=== PATIENT | male | born 1945 | race Caucasian/White ===

== ENCOUNTER 2020-05-20 10:41 | Inpatient (IN) | payer OTHER ==
[~2020-05-20] VITALS: Ht 180.3 cm; Wt 125.2 kg
[2020-05-20 10:43] VITALS: BP 135/89
[2020-05-20 11:58] LABS: ABSOLUTE NEUTROPHILS 4.5 thou/uL (1.4-8.2); BASOPHILS 1.1 % (0.0-2.0); EOSINOPHILS 5.5 % (0.0-3.0); HEMATOCRIT 42.3 % (42.0-52.0); LYMPHOCYTES 14.3 % (24.0-44.0); MCH 33.1 pg (26.0-34.0); MCV 100.4 fL (80.0-100.0); MONOCYTES 9.4 % (1.0-8.0); PLATELET COUNT 211 thou/uL (150-400); POLYS 69.7 % (36.0-66.0); RBC 4.22 mil/uL (4.50-6.00); RDW 13.8 % (10.5-14.5); WBC 6.4 thou/uL (4.0-11.0)
[2020-05-20 12:04] LABS: ANION GAP 4 mmol/L (7-16); BUN 18 mg/dL (7-18); CALCIUM 9.3 mg/dL (8.5-10.1); CHLORIDE 100 mmol/L (98-107); CO2 30 mmol/L (21-32); CREATININE 1.2 mg/dL (0.7-1.3); GLUCOSE 120 mg/dL (74-106); POTASSIUM 4.7 mmol/L (3.5-5.1); SODIUM 134 mmol/L (136-145)
[2020-05-20 12:09] LABS: ALBUMIN 3.6 g/dL (3.4-5.0); SGOT 56 U/L (15-37); SGPT 96 U/L (30-65); TOTAL BILIRUBIN 1.1 mg/dL (0.2-1.0); TOTAL PROTEIN 7.2 g/dL (6.4-8.2); TROPONIN-I <0.06 ng/mL (<0.06)
--- NOTE | 2020-05-20 13:12 | EKG ---
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: : 1945 Requested By: Remedios Nunez Order Number: [id number] MD: Otilio Horne Measurements Intervals [place] Rate: 71 P: 259 TX: 243 QRS: -40 QRSD: 109 T: 4 QT: 416 QTc: 453 Interpretive Statements Atrial fibrillation Left anterior fascicular block Abnormal R-wave progression, late transition Borderline T abnormalities, inferior leads No previous ECG available for comparison Electronically Signed On 05-20-2020 13:12:06 SOFTWARE SOLUTIONS ARCHITECT by Otilio Horne [email or web address] <ELECTRONICALLY SIGNED> By: Otilio Horne MD 05/20/20 1312 1047 1047 Otilio Horne MD /RODERICK
[2020-05-20 20:00] VITALS: BP 123/85
[2020-05-21 01:30] VITALS: BP 142/73
[2020-05-21] MEDS ORDERED: CYCLOBENZAPRINE5 MG PO (06:49)
[2020-05-21] MEDS ORDERED: METOPROLOL SUC100 MG PO (06:49)
[2020-05-21] MEDS ORDERED: CLONIDINE HCL0.3 M2 PO (06:49)
[2020-05-21] MEDS ORDERED: ASA81BEC PO (06:50)
[2020-05-21] MEDS ORDERED: XARELTO20 MG PO (06:50)
[2020-05-21] MEDS ORDERED: LOVASTATIN40 MG PO (06:50)
[2020-05-21] MEDS ORDERED: ALEVE220 M1 PO (06:50)
[2020-05-21] MEDS ORDERED: STOOL SOFTENER1 EAC2 PO (06:51)
[2020-05-21 08:38] VITALS: BP 141/81
[2020-05-21 09:30] VITALS: BP 154/80
[2020-05-21 10:12] VITALS: BP 154/80
[2020-05-21 11:45] LABS: APTT 27.8 Seconds (24.5-32.8); PROTIME 11.5 Seconds (9.3-11.4)
--- NOTE | 2020-05-21 14:09 | NUR ---
PT PRESENTS FROM BEEF [facility]ONER FOLLOWING PACEMAKER PLACEMENT. PT IS SLEEPING AND DENIES PAIN AT THIS TIME. ADMISSION ASSESSMENT PERFORMED. VSS. WILL CONTINUE TO MONITOR.
[2020-05-21 20:00] VITALS: BP 122/79
[2020-05-21 20:04] VITALS: BP 122/79
[2020-05-22] VITALS: BP 174/103
[2020-05-22 04:57] VITALS: BP 154/105
[2020-05-22] MEDS ORDERED: BENICAR40 MG PO (07:30)
[2020-05-22] MEDS ORDERED: CARDIZEM CD 18180 M3 PO (07:30)
[2020-05-22 08:15] VITALS: BP 151/87
[2020-05-22 11:17] VITALS: BP 157/87
--- NOTE | 2020-05-22 11:49 | NUR ---
PT WAS SEEN TODAY BY CARDIOLOGY GROUP OK'D TO DISCHARGE, PT'S WAS AT BEDSIDE THOUGH SHE HAD LEFT TO GRAB THE CHECKBOOK FROM HOME, THE DISCHARGE INSTRUCTIONS WERE PROVIDED TO THE PT, AND PT VERBALIZED UNDERSTANDING. ALL IV'S REMOVED. PT IS READY TO LEAVE AT THIS TIME. NO COMPLAINTS OF CHEST PAIN AT THIS AND CLEARE BY CARDIOLOGY TO GO. RN SIGNING OFF AT THIS TIME
[2020-06-03] MEDS ORDERED: XARELTO20 MG PO (07:41)
--- NOTE | 2020-06-03 16:13 | P ---
[facility] [place] [address] PROCEDURE REPORT Name: BECK THIBODEAUX Room #: 213-P [facility] IN M.R.#: [id number] Admission: 05/20/20 Attend Phys: Saurav Sherwood MD, Discharge: 05/22/20 Date of : 46 Report #: [id number] THIS REPORT FOR: cc: Aroldo Arreola MD, Michael D. MD Couchonnal, Luis F. MD ~ PACEMAKER PREOPERATIVE DIAGNOSES: 1. Symptomatic bradycardia. 2. Atrial fibrillation. POSTOPERATIVE DIAGNOSES: 1. Symptomatic bradycardia. 2. Atrial fibrillation. PROCEDURES PERFORMED: Dual-chamber pacemaker implantation. HISTORY: The patient is a 74-year-old recently diagnosed with new onset AFib, who has periods of AFib with RVR, but also of symptomatic bradycardia with 4-5 second pauses. 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 ANESTHESIA: The patient underwent MAC anesthesia with no anesthesia related complications. DESCRIPTION OF PROCEDURE: The patient underwent informed consent. We discussed the details of the procedure including the risks, which include but not limited to bleeding, infection, vascular damage, cardiac perforation, pneumothorax. He understood these risks and is willing to proceed. The patient was brought to EP laboratory in a fasting and sedated state, prepped and draped in a sterile fashion, underwent venogram and received IV antibiotics. Next, I injected lidocaine at the incision site. Incision was made, pocket was created over the prepectoral fascia and access was obtained twice to left axillary vein using the extrathoracic approach with sheaths positioned using the modified Seldinger technique. Leads were positioned in the right ventricular apex, right atrial appendage, both with adequate pacing and sensing thresholds. Leads were sutured to prepectoral fascia. Device was connected to leads. Pocket was irrigated with vancomycin. Pocket was closed in 2 layers and surgical glue was placed to outer skin layer. The patient awoke neurologically and hemodynamically intact. No complications and no significant bleeding. The implanted pacemaker was a Medtronic model number #W3DR01, serial #[id number], an atrial lead was 5076, 52 cm, serial #[id number] and the ventricular lead was 5076, 58 cm, serial #[id number]. Atrial lead demonstrated two P waves that were 2.0 in atrial fibrillation with a pacing impedance of 621 ohms. Threshold was [facility] [address] [place] [address] PROCEDURE REPORT Name: BECK THIBODEAUX Room #: 213-P DIS IN M.R.#: [id number] Admission: 05/20/20 Attend Phys: Saurav Sherwood MD, Discharge: 05/22/20 Date of : 46 Report #: [id number] not checked as he is in AFib. The RV lead demonstrated a R-wave of 5.3 millivolts, pacing impedance 690 ohms and a pacing threshold of 0.8 volts at 0.5 milliseconds. The device was programmed to the VVIR mode 60-130. CONCLUSIONS: Successful dual-chamber pacemaker implantation, satisfactory atrial and ventricular pacing and sensing characteristics. RECOMMENDATIONS: 1. Monitor in the hospital overnight. 2. As an outpatient, we will cardiovert the patient after he has been properly anticoagulated. <ELECTRONICALLY SIGNED> By: Otilio Horne MD 06/03/20 1613 1251 03 Otilio Horne MD /nt
== END 2020-05-22 12:11 | disposition home or self-care (01) | DRG 243 ==
LOC: ER 10:41 → TBACV 12:57 → ER 13:30 → EROBS 13:30 → ER 05-21 11:37 → TBACV 05-21 11:37 → 2N 05-21 13:53
PROVIDERS: Internal Medicine; Internal Medicine Cardiovascular Disease; ADMIT Internal Medicine Cardiovascular Disease; ATTEND Internal Medicine Cardiovascular Disease
PROC: 0JH606Z Insertion of Pacemaker, Dual Chamber into Chest Subcutaneous Tissue and Fascia, Open Approach (ICD-10-PCS; principal; 2020-05-21)
PROC: 02H63JZ Insertion of Pacemaker Lead into Right Atrium, Percutaneous Approach (ICD-10-PCS; principal; 2020-05-21)
PROC: 02HK3JZ Insertion of Pacemaker Lead into Right Ventricle, Percutaneous Approach (ICD-10-PCS; principal; 2020-05-21)
DX: I49.5 Sick sinus syndrome (principal); I48.20 Chronic atrial fibrillation, unspecified; I48.0 Paroxysmal atrial fibrillation; I10 Essential (primary) hypertension; E78.5 Hyperlipidemia, unspecified; Z20.822 Contact with and (suspected) exposure to COVID-19; Z79.899 Other long term (current) drug therapy; Z79.01 Long term (current) use of anticoagulants; Z79.82 Long term (current) use of aspirin; Z82.49 Family history of ischemic heart disease and other diseases of the circulatory system; Z86.16 Personal history of COVID-19
CPT/HCPCS: 10081; 62110; 62900; 70005

== ENCOUNTER → 2020-05-29 | Outpatient (CLI) | payer OTHER ==
[~2020-05-29] MED LIST: ALEVE220 M1 PO; ASA81BEC PO; BENICAR40 MG PO; CARDIZEM CD 18180 M3 PO; CLONIDINE HCL0.3 M2 PO; CYCLOBENZAPRINE5 MG PO; LOVASTATIN40 MG PO; METOPROLOL SUC100 MG PO; STOOL SOFTENER1 EAC2 PO; XARELTO20 MG PO
== END ==
LOC: SJCVC 15:14
PROVIDERS: ATTEND Internal Medicine Cardiovascular Disease
DX: I48.19 Other persistent atrial fibrillation (principal); I42.9 Cardiomyopathy, unspecified; I49.5 Sick sinus syndrome; I10 Essential (primary) hypertension; I48.0 Paroxysmal atrial fibrillation; E78.5 Hyperlipidemia, unspecified; Z95.0 Presence of cardiac pacemaker; Z72.89 Other problems related to lifestyle; Z79.82 Long term (current) use of aspirin; Z79.899 Other long term (current) drug therapy; Z87.891 Personal history of nicotine dependence; Z86.16 Personal history of COVID-19; Z82.49 Family history of ischemic heart disease and other diseases of the circulatory system

== ENCOUNTER → 2020-05-30 | Outpatient (CLI) | payer OTHER | LOC: LAB 09:42 | PROVIDERS: ATTEND Internal Medicine Cardiovascular Disease | DX: Z01.812 Encounter for preprocedural laboratory examination (principal); Z20.822 Contact with and (suspected) exposure to COVID-19 ==

== ENCOUNTER → 2020-06-03 | Outpatient (CLI) | payer OTHER ==
[~2020-06-03] VITALS: Ht 180.3 cm; Wt 120.2 kg
--- NOTE | ~2020-06-03 | EKG ---
[place] [address] [facility] [place] [address] ELECTROCARDIOGRAM REPORT Name: BECK THIBODEAUX Room #: REG [facility]#: [id number] Admission: 06/03/20 Attend Phys: José Luis Velázquez MD, Discharge: Date of : 46 Report #: [id number] [facility] Test Date: 2020-06-03 Test Time: 07:40:02 Pat Name: BECK THIBODEUAX Department: Room: Gender: M Manager Of Enterprise: SYLVIACLINTON : 1945 Requested By: José Luis Velázquez Order Number: [id number] MD: Measurements Intervals [place] Rate: 71 P: 266 TN: 136 QRS: -37 QRSD: 110 T: 12 QT: 366 QTc: 398 Interpretive Statements Sinus or ectopic atrial rhythm Atrial premature complexes Left axis deviation Abnormal R-wave progression, late transition Compared to ECG 05/20/2020 10:47:39 Ectopic atrial rhythm now present Atrial premature complex(es) now present Left-axis deviation now present Atrial fibrillation no longer present Left anterior fascicular block no longer present T-wave abnormality no longer present [email or web address] By: 0740 07 [facility] [place] /EPI
[2020-06-03 07:21] VITALS: BP 91/41
--- NOTE | 2020-06-03 12:02 | TEE ---
[facility] [place] [address] TRANSESOPHAGEAL ECHOCARDIOGRAM Name: BECK THIBODEAUX Room #: REG SHARON David.#: [id number] Admission: 06/03/20 Attend Phys: José Luis Velázquez MD, Discharge: Date of : 46 Report #: [id number] THIS REPORT FOR: cc: Aroldo Arreola MD, Michael D. MD Santiago, Patrick MD [facility] ~ APPROVED REPORT Study performed: 06/03/2020 09:02:45 EXAM: Comprehensive 2D, Doppler, and color-flow Echocardiogram Patient Location: Out-Patient Room #: 9 Status: routine BSA: 2.38 HR: 85 bpm Other Information Study Quality: Good Indications Atrial Fibrillation Echo Enhancing Agent Indication: Rule out Shunt Agent(s) / Amount(s) Used: Agitated Saline 7 cc Procedure After obtaining informed consent, patient underwent transesophageal echo in the Maintenance Instructor Holding. Type of Sedation : Conscious Sedation Sedation was administered by Nurse. Sedation was achieved intravenously with: Versed (6 mg) Fentanyl (50 mcg) Transesophageal probe was inserted and advanced into esophagus without difficulty by José Luis Velázquez MD. Echo enhancement indication: R/O Septal defect. Echo enhancement agent administered: Agitated Saline The CYNDEE was performed without complications. Synchronized Cardioversion acheived with 75 Joules after 1 attempt(s). Throughout the procedure, the blood pressure, pulse oximetry, cardiac [facility] [address] [place] [address] TRANSESOPHAGEAL ECHOCARDIOGRAM Name: BECK THIBODEAUX Room #: REG CL [facility].#: [id number] Admission: 06/03/20 Attend Phys: José Luis Velázquez, Discharge: Date of : 46 Report #: [id number] rhythm, and rate were monitored. The patient tolerated the procedure without adverse effects. Recovery from conscious sedation was uneventful and vital signs were stable. Left Ventricle The left ventricle is normal size. There is normal LV segmental wall motion. There is normal left ventricular wall thickness. The left ventricular systolic function is normal. The left ventricular ejection fraction is within the normal range. LVEF is 50% Right Ventricle The right ventricle is normal size. The right ventricular systolic function is normal. Atria Left atrium is dilated. The right atrium size is normal. Aortic Valve The aortic valve is normal in structure. No aortic regurgitation is present. There is no aortic valvular stenosis. Mitral Valve The mitral valve is normal in structure. Trace mitral regurgitation. No evidence of mitral valve stenosis. Tricuspid Valve The tricuspid valve is normal in structure. There is no tricuspid valve regurgitation noted. Pulmonic Valve The pulmonary valve is normal in structure. There is no pulmonic valvular regurgitation. Great Vessels The aortic root is normal in size. Pericardium There is no pericardial effusion. <Conclusion> Consent previously obtained Atrial fibrillation at baseline Esophageal probe was advanced without difficulty Normal left ventricular size/wall thickness Left atrial appendage, moderate size, no obvious clot [facility] [address] [place] [address] TRANSESOPHAGEAL ECHOCARDIOGRAM Name: BECK THIBODEAUX Room #: REG CL [facility].#: [id number] Admission: 06/03/20 Attend Phys: José Luis Velázquez, Discharge: Date of : 46 Report #: [id number] detected Ejection fraction 50% Normal right ventricular size/function Mild left atrial enlargement Normal aortic valve structure and function Trace mitral valve insufficiency Normal aortic root size None no pericardial effusion Aorta; mild calcification detected No evidence of ASD/VSD by color flow/bubble study Patient successfully cardioverted to sinus rhythm after 75 J in a biphasic mode Patient tolerated the procedure well Twelve-lead ECG pending Pacemaker to be interrogated post procedure <ELECTRONICALLY SIGNED> By: José Luis Velázquez MD, FACC 06/03/20 120 00 00 José Luis Velázquez MD, FACC /INF
--- NOTE | 2020-06-03 14:58 | EKG ---
[address] [address] ELECTROCARDIOGRAM REPORT Name: BECK THIBODEAUX Room #: [facility]#: [id number] Admission: 06/03/20 Attend Phys: José Luis Velázquez MD, Discharge: Date of : 46 Report #: [id number] [facility] Test Date: 2020-06-03 Test Time: 07:40:02 Pat Name: BECK THIBODEAUX Department: Room: Gender: Study Abroad Coordinator: NORA : 1945 Requested By: José Luis Velázquez Order Number: [id number] : Otilio Horne Measurements Intervals [place] Rate: 71 P: 266 IA: 136 QRS: -37 QRSD: 110 T: 12 QT: 366 QTc: 398 Interpretive Statements Atrial fibrillation Compared to ECG 05/20/2020 10:47:39 Electronically Signed On 06-03-2020 14:58:03 CDT by Otilio Horne [email or web address] <ELECTRONICALLY SIGNED> By: Otilio Horne MD 06/03/20 1458 0740 0740 MD AUGUSTINE Barrientos
== END | disposition home or self-care (01) ==
LOC: CATH 06:23
PROVIDERS: ATTEND Internal Medicine
DX: I48.91 Unspecified atrial fibrillation (principal); I48.92 Unspecified atrial flutter; I34.0 Nonrheumatic mitral (valve) insufficiency; I42.9 Cardiomyopathy, unspecified; I10 Essential (primary) hypertension; I25.10 Atherosclerotic heart disease of native coronary artery without angina pectoris; M19.90 Unspecified osteoarthritis, unspecified site; E78.00 Pure hypercholesterolemia, unspecified; Z98.890 Other specified postprocedural states; Z79.899 Other long term (current) drug therapy; Z79.01 Long term (current) use of anticoagulants

== ENCOUNTER → 2020-06-06 | Outpatient (CLI) | payer OTHER | LOC: SJCVC 12:54 | PROVIDERS: ATTEND Internal Medicine Cardiovascular Disease | DX: R94.31 Abnormal electrocardiogram [ECG] [EKG] (principal); I48.0 Paroxysmal atrial fibrillation; I10 Essential (primary) hypertension; E78.00 Pure hypercholesterolemia, unspecified; D68.59 Other primary thrombophilia; E78.5 Hyperlipidemia, unspecified; Z82.49 Family history of ischemic heart disease and other diseases of the circulatory system; Z87.891 Personal history of nicotine dependence; Z79.82 Long term (current) use of aspirin; Z79.899 Other long term (current) drug therapy; Z95.0 Presence of cardiac pacemaker ==

== ENCOUNTER → 2020-07-04 | Outpatient (CLI) | payer OTHER | LOC: SJCVC 12:56 | PROVIDERS: ATTEND Internal Medicine Cardiovascular Disease | DX: I48.91 Unspecified atrial fibrillation (principal); I10 Essential (primary) hypertension; E78.5 Hyperlipidemia, unspecified; Z98.890 Other specified postprocedural states; Z95.0 Presence of cardiac pacemaker; Z79.82 Long term (current) use of aspirin; Z79.899 Other long term (current) drug therapy; Z86.16 Personal history of COVID-19; Z87.891 Personal history of nicotine dependence; Z82.49 Family history of ischemic heart disease and other diseases of the circulatory system ==

== ENCOUNTER → 2020-09-03 | Outpatient (CLI) | payer OTHER | LOC: SJCVC 08:52 | PROVIDERS: ATTEND Internal Medicine Cardiovascular Disease | DX: I48.0 Paroxysmal atrial fibrillation (principal); I49.5 Sick sinus syndrome; I10 Essential (primary) hypertension; E78.5 Hyperlipidemia, unspecified; Z95.0 Presence of cardiac pacemaker; Z79.82 Long term (current) use of aspirin; Z79.899 Other long term (current) drug therapy; Z87.891 Personal history of nicotine dependence; Z72.89 Other problems related to lifestyle ==

== ENCOUNTER → 2020-12-19 | Outpatient (CLI) | payer OTHER | LOC: SJCVCIMAG 09:04 | PROVIDERS: ATTEND Internal Medicine Cardiovascular Disease | DX: I34.0 Nonrheumatic mitral (valve) insufficiency (principal); I48.0 Paroxysmal atrial fibrillation; E78.00 Pure hypercholesterolemia, unspecified; I49.5 Sick sinus syndrome; D68.59 Other primary thrombophilia; R06.02 Shortness of breath; I10 Essential (primary) hypertension; E78.5 Hyperlipidemia, unspecified; Z95.0 Presence of cardiac pacemaker; Z72.89 Other problems related to lifestyle; Z79.899 Other long term (current) drug therapy; Z87.891 Personal history of nicotine dependence ==

== ENCOUNTER → 2021-01-20 | Outpatient (CLI) | payer OTHER | LOC: SJCVC 08:20 | PROVIDERS: ATTEND Internal Medicine Cardiovascular Disease | DX: D64.9 Anemia, unspecified (principal); I48.0 Paroxysmal atrial fibrillation; I49.5 Sick sinus syndrome; E78.00 Pure hypercholesterolemia, unspecified; Z82.49 Family history of ischemic heart disease and other diseases of the circulatory system; Z87.891 Personal history of nicotine dependence; Z72.89 Other problems related to lifestyle; Z79.899 Other long term (current) drug therapy ==

== ENCOUNTER 2021-02-25 09:11 | Inpatient (IN) | payer OTHER ==
[~2021-02-25] VITALS: Ht 180.3 cm; Wt 120.2 kg
--- NOTE | ~2021-02-25 | EMS ---
[address] [address] EMS Patient Care Report Name: BECK THIBODEAUX Room #: 440-P ADM IN M.R.#: [id number] Admission: 02/25/21 Attend Phys: Marck Kolb MD Discharge: Date of : 46 Report #: [id number] THIS REPORT FOR: //name// Report Transmitted: 03/07/2021 14:01 EMS Care Summary [place], [place]/[facility] Incident [id number] @ 02/25/2021 08:46 Incident Location [address] [place] [address] Patient BECK THIBODEAUX Male, 75 Years 1945 Patient Address Patient History Hypertension (HTN),Pacemaker/AICD,Atrial Fibrillation,Skin Cancer, Patient Allergies No known allergies, Patient Medications Metoprolol, Lovastatin, Aleve, Chief Complaint GENERAL WEAKNESS Disposition Transported No Lights/[place] Dispatch Reason Breathing Problem Transported To [facility] Narrative M537 ARRIVED ON SCENE TO FIND PT IN LIVING ROOM OF HOME SPEAKING WITH FIRE CREWS ON SCENE. PT, A 75YO MALE STATES THAT HE HAS BEEN BECOMING WEAKER FOR THE PAST FEW DAYS AND BELIEVES IT IS DUE TO HIS LOW HEMOGLOBIN COUNT. PT STATES HE GETS VERY SHORT OF BREATH AFTER STANDING OR WALKING ANY DISTANCE. PT STATES HE BELIEVES IT MAY HAVE TO DUE WITH HIS HEART WELL SINCE HE HAS A-FIB. PT WAS ASSISTED ONTO THE COT VIA OWN AMBULATION AND SECURED WITH ALL AVAILABLE STRAPS. [address] [place] [address] EMS Patient Care Report Name: BECK THIBODEAUX Room #: 440-P ADM IN M.R.#: [id number] Admission: 02/25/21 Attend Phys: Marck Kolb MD Discharge: Date of : 46 Report #: [id number] PT VITALS ASSESSED ON SCENE AND 3LEAD ECG PLACED. PT WAS CONNECTED TO 4L OF OXYGEN VIA NASAL CANULA AND O2 SATS WERE INCREASED. PT VITALS MONITORED ENROUTE. UPON ARRIVAL TO ED PT WAS UNLOADED FROM AMBULANCE VIA STRETCHER AND BROUGHT TO ROOM 6. PT WAS ASSISTED TO HOSPITAL BED. VERBAL REPORT GIVEN TO RN AND PT CARE TRANSFERRED. M537 RETURN IN SERVICE. Initial Vitals @09:03P: 83,BP: 120/91,SpO2: 99, @08:58P: 78,SpO2: 93, @08:54P: 81,SpO2: 81, @08:56P: 78,SpO2: 84, @09:00P: 68,BP: 143/73, @09:00P: 54,R: 16,BP: 127/66,Pain: 0/10,GCS: 15,SpO2: 99,Revised Trauma: 12,PA Suspected: false Assessments @08:54MENTAL:Time Oriented,Person Oriented,Place Oriented,Event Oriented,SKIN:HEENT:LUNG SOUNDS:ABDOMEN:PELVIS//GI:EXTREMITIES:PULSE:NEURO: Impression Cardiac arrhythmia/dysrhythmia Procedures @08:54 ALS Assessment Response: UnchangedSucceeded @08:56 Stretcher Response: Unchanged @08:58 3-Lead ECG Response: UnchangedSucceeded @08:58 Oxygen FlowRate: 4 Device: Nasal Cannula (NC) Response: ImprovedSucceeded Timeline 08:36,Call Received 08:36,Dispatch Notified 08:46,Dispatched 08:46,En Route 08:51,On Scene 08:53,At Patient 08:54,ALS Assessment,Response: UnchangedSucceeded, 08:54,BP: / M,PULSE: 81,RR: R,SPO2: 81 Ox,ETCO2: ,BG: ,PAIN: ,GCS: , 08:56,Stretcher,Response: Unchanged 08:56,BP: / M,PULSE: 78,RR: R,SPO2: 84 Ox,ETCO2: ,BG: ,PAIN: ,GCS: , 08:58,Oxygen FlowRate: 4 Device: Nasal Cannula (NC) Response: ImprovedSucceeded, 08:58,3-Lead ECG,Response: UnchangedSucceeded, 08:58,BP: / M,PULSE: 78,RR: R,SPO2: 93 Ox,ETCO2: ,BG: ,PAIN: ,GCS: , [facility] [address] [place] [address] EMS Patient Care Report Name: BECK THIBODEAUX Room #: 440-P ADM IN M.R.#: [id number] Admission: 02/25/21 Attend Phys: Marck Kolb MD Discharge: Date of : 47 Report #: [id number] 09:00,BP: 127/66 M,PULSE: 54,RR: 16 R,SPO2: 99 Ox,ETCO2: ,BG: ,PAIN: 0,GCS: 15, 09:00,BP: 143/73 M,PULSE: 68,RR: R,SPO2: Ox,ETCO2: ,BG: ,PAIN: ,GCS: , 09:01,Depart Scene 09:03,BP: 120/91 M,PULSE: 83,RR: R,SPO2: 99 Ox,ETCO2: ,BG: ,PAIN: ,GCS: , 09:07,At Destination 09:27,Call Closed Disclaimer v1.1 Copyright 2020 [employer] This EMS Care Summary contains data elements from the applicable legal record (which may be displayed differently). It is designed to provide pertinent information for the following purposes: continuity of care, clinical quality, and state data reporting. The complete legal record is available to ED staff and administrators of the receiving hospital in [employer] Patient Tracker. All data is provided "as is."
[2021-02-25] MEDS ORDERED: LASIX 20 MG TAB20 MG PO (09:27)
[2021-02-25] MEDS ORDERED: IRON325 M1 PO (09:28)
[2021-02-25] MEDS ORDERED: KLOR-CON M2020 MEQ PO (09:28)
[2021-02-25 09:34] LABS: ABSOLUTE NEUTROPHILS 5.8 thou/uL (1.4-8.2); BASOPHILS 0.2 % (0.0-2.0); EOSINOPHILS 4.2 % (0.0-3.0); HEMATOCRIT 27.7 % (42.0-52.0); HEMOGLOBIN 8.3 gm/dL (14.0-18.0); LYMPHOCYTES 6.6 % (24.0-44.0); MCH 23.4 pg (26.0-34.0); MCHC 29.8 g/dL (28.0-37.0); MCV 78.7 fL (80.0-100.0); MONOCYTES 7.3 % (1.0-8.0); PLATELET COUNT 323 thou/uL (150-400); POLYS 81.7 % (36.0-66.0); RBC 3.52 mil/uL (4.50-6.00); RDW 20.3 % (10.5-14.5); WBC 7.2 thou/uL (4.0-11.0)
[2021-02-25 09:42] LABS: CALCIUM 8.8 mg/dL (8.5-10.1); CREATININE 6.5 mg/dL (0.7-1.3); POTASSIUM 4.7 mmol/L (3.5-5.1)
[2021-02-25 11:57] LABS: ANISOCYTOSIS 2+; PLATELET ESTIMATE NORMAL; SCHISTOCYTES FEW
[2021-02-25 15:34] VITALS: BP 147/58
[2021-02-25 20:10] VITALS: BP 105/63
[2021-02-26 03:51] LABS: ALBUMIN 2.3 g/dL (3.4-5.0); CALCIUM 8.4 mg/dL (8.5-10.1); CREATININE 6.8 mg/dL (0.7-1.3); PHOSPHORUS 7.2 mg/dL (2.5-4.9); POTASSIUM 4.5 mmol/L (3.5-5.1)
[2021-02-26 05:31] VITALS: BP 111/57
[2021-02-26 06:13] LABS: URINE BILIRUBIN NEGATIVE (Negative); URINE BLOOD 3+ (Negative); URINE CLARITY CLEAR; URINE COLOR YELLOW; URINE GLUCOSE-RANDOM* NEGATIVE (Negative); URINE KETONES NEGATIVE (Negative); URINE LEUKOCYTES-REFLEX NEGATIVE (Negative); URINE NITRITE-REFLEX NEGATIVE (Negative); URINE PROTEIN (DIPSTICK) 2+ (Negative)
[2021-02-26 07:22] LABS: CASTS None Seen /LPF (None Seen); SQUAMOUS 0-3 Few /LPF (0-3); URINE RBC 1-2 Rare /HPF (NONE SEEN); URINE WBC-REFLEX 0-5 Rare /HPF (0-5)
[2021-02-26 07:23] LABS: BACTERIA-REFLEX 1-9 Few /HPF (None Seen)
[2021-02-26 07:34] VITALS: BP 107/59
--- NOTE | 2021-02-26 08:38 | EKG ---
[address] [place] [address] ELECTROCARDIOGRAM REPORT Name: BECK THIBODEAUX Room #: 440-P ADM IN M.R.#: [id number] Admission: 02/25/21 Attend Phys: Marck Kolb MD Discharge: Date of : 47 Report #: [id number] [facility] ED Test Date: 2021-02-25 Test Time: 09:19:04 Pat Name: BECK THIBODEAUX Department: Room: 440 Gender: M Director Of Reservations: SARAH : 1945 Requested By: Nawaf Stafford Order Number: [id number] MD: John Moffett Measurements Intervals [place] Rate: 76 P: [place]: QRS: -30 QRSD: 115 T: -6 QT: 542 QTc: 610 Interpretive Statements Atrial fibrillation Nonspecific intraventricular conduction delay Nonspecific T wave abnormality Baseline wander in lead(s) V1 Compared to ECG 06/03/2020 07:40:02 T wave abnormality is now present Electronically Signed On 02-26-2021 8:38:21 GEOSCIENTIST by John Moffett [email or web address] <ELECTRONICALLY SIGNED> By: John Moffett MD, [facility] 02/26/21 0838 8 8 John Moffett MD, [facility] /EPI
--- NOTE | 2021-02-26 09:30 | NUR ---
75-year-old male with a history of A. fib presents emergency department bilateral lower extremity weakness and pain. Patient describes claudication getting worse over the last few months however this morning was only able to walk to the restroom and back and felt too weak with too much pain to continue per ED. Has pacemaker. shortness of breath with walking . Nephrology consulted for abnormal lab, bun and creat. Chart review. CM visited with Terrancep at bedside. Into to cm and dcp. He is A & o x 3, and able to make his needs know. He does not live with his , they live separate. She is a physical therapist at [employer]. He lives in apartment at [address] [place] [address], [address], [place] [address]. There is an elevator or 13 steps up to his apartment. Lived there last few years since pacemaker. Have cane, walker, wheelchair, and shower chair. No hh or rehab in the past. I might need some rehab this time per Mati. Will cont. following as needed for dc needs.
--- NOTE | 2021-02-26 11:00 | NUR ---
ASSUMED CARE OF PT AT 0700 THIS MORNING FROM THE ER. PT HAS BEEN WEAK AND DIZZINESS WITH NAUSEA. PT IS A/OX4 WITH NO ISSUES AND NO COMPLAINTS OF NAUSEA NOW. ASSESSMENTS ARE NOTED IN CHART AND OTHERWISE UNREMARKABLE. PT IS UP WITH SB ASST. CALL LIGHT AND OTHER NEEDS ARE IN REACH. MEDS AND TX GIVEN NEEDED AND SCHEDULED. WILL MONITOR PT AND NOTE ANY CHANGES.
[2021-02-26 15:38] VITALS: BP 143/68
[2021-02-26 19:53] VITALS: BP 121/50
[2021-02-27 01:06] LABS: IgA 282 mg/dL (61-437); IgG 702 mg/dL (603-1613); IgM 37 mg/dL (15-143)
[2021-02-27 03:47] VITALS: BP 125/75
[2021-02-27 05:55] LABS: ALBUMIN 2.3 g/dL (3.4-5.0); CALCIUM 8.6 mg/dL (8.5-10.1); PHOSPHORUS 7.1 mg/dL (2.5-4.9); POTASSIUM 4.5 mmol/L (3.5-5.1)
--- NOTE | 2021-02-27 06:38 | NUR ---
ASSUMED CARE OF PT AT 1900. PT ASSESSED TO BE AOX4 75M PRESENTING WITH RENAL FAILURE AND WEAKNESS. PT WAS ABLE TO REST QUIETLY IN BED THROUGHOUT THE NIGHT WITH NO COMPLAINTS, VSS. STABLE ON RA, CAN AMBULATE X1/WALKER STEADILY, FLUIDS INFUSING, AND NO PAIN OR NAUSEA VERBALIZED THROUGHOUT THE SHIFT. NO FURTHER COMPLAINTS, WILL CONT TO MONITOR.
[2021-02-27 07:45] VITALS: BP 164/76
[2021-02-27] MEDS ORDERED: PROTONIX40 M2 PO (09:05)
[2021-02-27 10:06] LABS: URINE PROTEIN-RANDOM* 177.3 mg/dL (<11.9)
--- NOTE | 2021-02-27 11:14 | NUR ---
Lives alone, will see how he does with therapy if he may needs rehab at [facility].
[2021-02-27 15:57] VITALS: BP 146/80
--- NOTE | 2021-02-27 17:16 | NUR ---
assumed care of pt at 0700. pt aox4 no acute distress. voicing no particular complaints. mild pain after therapy. rehab consulted for placement. no changes to report.
[2021-02-27 19:58] VITALS: BP 138/83
[2021-02-27 21:06] LABS: COMPLEMENT-C3 115 mg/dL (82-167); COMPLEMENT-C4 23 mg/dL (12-38)
--- NOTE | 2021-02-28 04:19 | NUR ---
RECEIVED CARE OF THIS PATIENT AT 1900. PATIENT ALERT AND ORIENTED X4. UP IN CHAIR FIRST OF SHIFT THEN TO BED WITH ASSIST OF ONE AND GB. TRINIDAD PATENT TEA COLORED URINE. IV PATENT IN RAC WITH FLUIDS INFUSING. REMAINS NPO SINCE [place] FOR RENAL BX THIS AM. DENIES PAIN. SLEPT MOST OF NIGHT.
[2021-02-28 04:34] LABS: APTT 26.2 Seconds (24.5-32.8); INR 1.01
[2021-02-28 05:01] LABS: ALBUMIN 2.2 g/dL (3.4-5.0); CALCIUM 8.6 mg/dL (8.5-10.1); CREATININE 6.9 mg/dL (0.7-1.3); PHOSPHORUS 6.9 mg/dL (2.6-4.7); POTASSIUM 4.5 mmol/L (3.5-5.1)
[2021-02-28 07:54] VITALS: BP 126/61
--- NOTE | 2021-02-28 08:26 | NUR ---
Cm visited with shikha and his /sig other at bedside. education on 5n vs skilled rehab at [place]. [facility] list choice provided. Shikha going for BX today. 1st choice would be 5n if able to accept and get insurance auth.
--- NOTE | 2021-02-28 10:40 | NUR ---
A/O X 4. ROOM AIR. STAND BY. RIGHT AC IV WITH NS@ 75 MLS/HR. TRINIDAD TEA COLORED URINE. BILATERAL CALF PAIN WITH MOVMENT-ULTRASOUND TO BE PERFORMED TODAY ON LEGS. PACEMAKER. NPO FOR RENAL BIOPSY TODAY. NO PAIN. AT BEDSIDE.
[2021-02-28 13:41] VITALS: BP 156/71
[2021-02-28 13:45] VITALS: BP 136/69
[2021-02-28 13:50] VITALS: BP 133/80
[2021-02-28 13:55] VITALS: BP 135/79
--- NOTE | 2021-02-28 14:01 | NUR ---
PATIENT ACCEPTED FOR ACUTE REHAB ADMISSION PENDING AUTHORIZATION. REQUEST FOR AUTHORIZATION MADE THIS DATE TO [facility]. REFERENCE NUMBER [id number]. CLINICALS SENT. ANTICFIPATE RESPONSE 03/03/21.
[2021-02-28 14:07] LABS: ANA INTERPRETATION Negative (Negative)
[2021-02-28 17:07] LABS: KAPPA FREE LIGHT CHAINS 84.1 mg/L (3.3-19.4); KAPPA/LAMBDA RATIO 1.74 (0.26-1.65); LAMBDA FREE LIGHT CHAINS 48.3 mg/L (5.7-26.3)
[2021-02-28 17:07] LABS: GLOBULIN TOTAL 2.8 g/dL (2.2-3.9); M-SPIKE Not Observed g/dL (Not Observed)
[2021-02-28 21:24] VITALS: BP 132/68
--- NOTE | 2021-03-01 04:17 | NUR ---
UPON SHIFT REPORT, PT WITHOUT ANY REPORTS OF CONCERN OR NEED. UPON SHIFT ASSESSMENT, PT AOX4. PT DENIES PAIN AND SOB WHILE ON ROOM AIR. PT TOLERATING PO INTAKE OF FLUIDS AND REGULAR DIET WITHOUT ISSUE. PT WITHOUT NAUSEA OR EMESIS. PT VOIDING PER TRINIDAD CATHETER, SECUREMENT DEVICE IN PLACE, DARK NEIL URINE NOTED. PT RESTING IN BED THROUGHOUT SHIFT, FREQUENT REPOSITIONING ENCOURAGED, PT NOTED TO SHIFT INDEPENDENTLY. PT REPORTS CHRONIC NUMBNESS IN BOTH FEET. CAPILLARY REFILL LESS THAN 3SEC, PERIPHERAL PULSES PALPABLE IN ALL EXTREMITIES. PT ENCOURAGED TO NOTIFY STAFF FOR ALL NEEDS, CALL LIGHT WITHIN REACH, BED ALARM ON, BED LOCKED IN LOWEST POSITION, FREQUENT MONITORING WILL CONTINUE.
[2021-03-01 06:21] LABS: ALBUMIN 2.2 g/dL (3.4-5.0); CALCIUM 8.8 mg/dL (8.5-10.1); CREATININE 6.3 mg/dL (0.7-1.3); PHOSPHORUS 6.5 mg/dL (2.6-4.7); POTASSIUM 4.5 mmol/L (3.5-5.1)
[2021-03-01 08:23] VITALS: BP 154/85
--- NOTE | 2021-03-01 15:14 | NUR ---
PT ALERT AND ORIENTED TIMES FOUR. VSS, IVF INFUSING PER ORDER. PT DENIES PAIN/SOA. PT WORKED WELL WITH PT/OT AND IS UP SITTING IN THE CHAIR. PT TOLERATES MEDS AND MEALS. PT AT BEDSIDE THIS AFTERNOON. PT PROGRESSING TOWRADS POC GOALS.
[2021-03-01 16:13] VITALS: BP 155/69
[2021-03-01 20:10] VITALS: BP 136/80
--- NOTE | 2021-03-02 04:27 | NUR ---
PT IS A/O X4 AND IS UP WITH ASSISTANCE X1 TO THE BSC/CHAIR. REMAINS ON RA. VSS. AFEBRILE. MEDICATIONS GIVEN PER MAY. TRINIDAD CATHETER IN PLACE DRAINING APPROPRIATELY. NO BM THIS SHIFT. PT CALLS OUT APPROPRIATELY FOR ASSISTANCE. IV FLUIDS INFUSING AT PRESCRIBED RATE. FALL PRECAUTIONS IN PLACE, CALL LIGHT IS WITHIN REACH. PT IS PROGRESSING TOWARDS PLAN OF CARE DC GOALS.
[2021-03-02 06:32] LABS: ALBUMIN 2.2 g/dL (3.4-5.0); CALCIUM 8.7 mg/dL (8.5-10.1); CREATININE 5.5 mg/dL (0.7-1.3); PHOSPHORUS 5.9 mg/dL (2.6-4.7); POTASSIUM 4.4 mmol/L (3.5-5.1)
[2021-03-02 07:34] VITALS: BP 156/79
--- NOTE | 2021-03-02 14:41 | NUR ---
A/O X 4. ROOM AIR. 2 ASSIST WITH TRANSFERS.lEFT AC IV WITH NS INFUSING @ 100 MLS/HR. TRINIDAD-DARK NEIL URINE, HEADACHE-TYLENOL GIVEN. SAT UPP IN HIS CHAIR FOR MOST OF THE AFTERNOON. PLAN TO D/C 5N TOMORROW.
[2021-03-02 15:22] VITALS: BP 134/54
[2021-03-02 19:45] VITALS: BP 151/72
[2021-03-03 06:09] LABS: ALBUMIN 2.1 g/dL (3.4-5.0); PHOSPHORUS 5.4 mg/dL (2.5-4.9); POTASSIUM 4.4 mmol/L (3.5-5.1)
[2021-03-03 06:12] LABS: CREATININE 4.5 mg/dL (0.7-1.3)
[2021-03-03 07:35] VITALS: BP 145/66
[2021-03-03 08:35] VITALS: BP 145/66
--- NOTE | 2021-03-03 09:32 | NUR ---
0761 THIS NURSE ASSUMES CARE OF THIS PATIENT. PT AWAKE AND WATCHING TV. NORMAL RISE AND FALL OF CHEST SEEN, NO RESPIRATORY DISTRESS NOTED AT THIS TIME. PT DOES C/O HEADACHE 6/10 PAIN AND WOULD LIKE TYLENOL WITH MORNING MED PASS. IV IN PLACE AND INFUSING NORMAL SALINE AT 100 ML/HR. NO PAIN AT SITE, NO REDNESS OR SWELLING SEEN. DENIES CHEST PAIN AND SOA.
[2021-03-03 10:10] LABS: GLOMERULR BASEM MEMBRN AB 3 units (0-20)
--- NOTE | 2021-03-03 14:31 | NUR ---
Discussed during los with the attending physician. Still needing bx results. 5N requesting auth. Possible ready for dc to 5n acute rehab tomorrow if have auth.
[2021-03-03 17:15] VITALS: BP 125/64
[2021-03-03 19:24] VITALS: BP 141/70
--- NOTE | 2021-03-04 02:25 | NUR ---
PT IS A/O X4 AND IS UP WITH MAX ASSISTANCE THIS DAY DUE TO GENERALIZED LEG WEAKNESS. ROOM AIR. VSS. AFEBRILE. TRINIDAD IN PLACE DRAINING APPROPRIATELY. PT C/O CONSTIPATION. NO BM NOTED THIS SHIFT. FALL PRECAUTIONS IN PLACE,CALL LIGHT IS WITHIN REACH.
[2021-03-04 05:31] LABS: ALBUMIN 2.2 g/dL (3.4-5.0); CREATININE 3.9 mg/dL (0.7-1.3); POTASSIUM 4.4 mmol/L (3.5-5.1)
[2021-03-04 05:59] LABS: CALCIUM 9.1 mg/dL (8.5-10.1)
[2021-03-04 08:10] VITALS: BP 146/86
--- NOTE | 2021-03-04 09:05 | NUR ---
Assess for length of stay. admit with HERIBERTO, rhabdo from statin. S/P renal biopsy. Wt stable, obese and tolerating meals well. Likely dc to 5N pending authorization. Low nutrition risk
--- NOTE | 2021-03-04 10:59 | NUR ---
voice message from [facility], offering p2p for 5n auth. ID # [id number], phone # to call [phone], then option 5 by noon - 1500 today. Cm passed on information to 5n liaison.
--- NOTE | 2021-03-04 11:12 | NUR ---
Assumed care of pt at 0700. Pt a&ox4. Denies pain. Up x2 assist to the chair. Pt has rash on the back from hospital bed sheets. Provider aware. Hydrocortisone cream ordered. RA. Call light within reach. Fall precautions in place. Will continue to monitor.
[2021-03-04 15:56] VITALS: BP 141/86
--- NOTE | 2021-03-04 17:35 | NUR ---
[facility] CALLED BACK TODAY WITH DENIAL FOR ACUTE INPATIENT REHAB. PATIENT [facility] MUSEUM ATTENDANT FAXED APPEAL INFORMATION TO [facility] THIS DATE ([phone]). WILL AWAIT DECISION. DC [employer] MANAGER INFORMED.
[2021-03-04 19:44] VITALS: BP 158/67
[2021-03-04 19:46] VITALS: BP 131/73
--- NOTE | 2021-03-05 04:00 | NUR ---
He c/o headache,relieved by tylenol. Kothari to d/d,good output. Miralax PRN given. Edema to BLE. Rom air, no distress.
[2021-03-05 06:46] LABS: ALBUMIN 2.2 g/dL (3.4-5.0); CALCIUM 9.2 mg/dL (8.5-10.1); CREATININE 3.2 mg/dL (0.7-1.3); PHOSPHORUS 4.4 mg/dL (2.5-4.9); POTASSIUM 4.2 mmol/L (3.5-5.1)
[2021-03-05 07:22] VITALS: BP 148/70
--- NOTE | 2021-03-05 10:05 | NUR ---
Assumed care of pt at 0700. Pt a&ox4. Denies pain. Kothari catheter in place. BLE edema. RA. x1-2 assist to bedside commode. Awaiting placement. Call light within reach. Fall precautions in place. Will continue to monitor.
[2021-03-05 15:25] VITALS: BP 132/77
[2021-03-05 19:35] VITALS: BP 110/59
[2021-03-06 06:15] LABS: HEMATOCRIT 25.4 % (42.0-52.0); HEMOGLOBIN 8.2 gm/dL (14.0-18.0); MCH 25.3 pg (26.0-34.0); MCHC 32.2 g/dL (28.0-37.0); MCV 78.7 fL (80.0-100.0); RBC 3.22 mil/uL (4.50-6.00); RDW 21.2 % (10.5-14.5); WBC 8.2 thou/uL (4.0-11.0)
[2021-03-06 06:36] LABS: ALBUMIN 2.3 g/dL (3.4-5.0); CREATININE 2.8 mg/dL (0.7-1.3); PHOSPHORUS 4.1 mg/dL (2.5-4.9); POTASSIUM 4.3 mmol/L (3.5-5.1)
[2021-03-06 08:00] VITALS: BP 143/84
[2021-03-06 11:37] VITALS: BP 144/77
--- NOTE | 2021-03-06 11:58 | NUR ---
cm visited with marciano related to needing a back up for skilled if 5n appeal is not approved by his insurance. working today but can call her at [phone]. Will cont following as needed.
--- NOTE | 2021-03-06 12:18 | NUR ---
A/O X 4. ROOM AIR .STAND BY ASSIST WITH WALKER. RIGHT AC IV SALINE LOCKED. TRINIDAD IN PLACE. NO PAIN NOTED. VSS.
--- NOTE | 2021-03-06 14:15 | NUR ---
WRAPPER HANDS SPRAYER FOR ACUTE REHAB RECEIVED CALL FROM PATIENT'S INSURNACE WITH RESPONSE TO APPEAL. DENIAL WAS UPHELD. CHIEF COMMUNICATIONS OFFICER INFOMRED OF DENIAL. THANK YOU FOR THIS REFERRAL.
[2021-03-06 20:21] VITALS: BP 154/80
[2021-03-07 06:33] LABS: ALBUMIN 2.5 g/dL (3.4-5.0); CALCIUM 9.3 mg/dL (8.5-10.1); CREATININE 2.5 mg/dL (0.7-1.3); PHOSPHORUS 3.8 mg/dL (2.5-4.9); POTASSIUM 4.2 mmol/L (3.5-5.1)
[2021-03-07 07:35] VITALS: BP 153/81
--- NOTE | 2021-03-07 07:39 | NUR ---
cm notified of his choices for skilled rehab, 1st [facility] and 2nd [facility]. Referral sent to [facility], will need insurance auth for skilled rehab.
--- NOTE | 2021-03-07 14:42 | NUR ---
A/O X 4. ROOM AIR. STAND BY ASSIST WITH TRANSFER WITH WALKER. RIGHT AC IV. TRINIDAD. HAS BILATERAL LEG EDEMA 2+. TEDS TO COME UP FROM CS. TRINIDAD WILL BE D/C'D PER DR. LEO.
[2021-03-07 16:02] VITALS: BP 145/80
[2021-03-07 20:58] VITALS: BP 147/73
[2021-03-08 06:16] LABS: ALBUMIN 2.6 g/dL (3.4-5.0); CALCIUM 8.9 mg/dL (8.5-10.1); CREATININE 2.2 mg/dL (0.7-1.3); PHOSPHORUS 3.8 mg/dL (2.5-4.9); POTASSIUM 4.1 mmol/L (3.5-5.1)
--- NOTE | 2021-03-08 06:28 | NUR ---
ASSUMED PT CARE THIS PM. PT IS ALERT AND ORIENTED X4. PT IS SBA WITH WALKER. PT HAS +2 EDEMA TO BLE. PT HAS NUMBNESS TO FEET. PT USES A URINAL AND HAD GOOD URINE OUT PUT. PT IS ON RA. PT DID NOT C/O SOBOR VERBALIZE ANY FORM OF CONCERNS. FALL PRECAUTIONS IN PLACE.WILL CONTINUE TO MONITOR.
[2021-03-08 07:10] VITALS: BP 146/83
--- NOTE | 2021-03-08 11:02 | NUR ---
Assumed care of pt at 0700. Pt a&ox4. SBA with walker and gait-belt. BLE edema. Possible d/c to SNF facility on Wednesday or Wednesday. Denies pain. Call light within reach. Fall precautions in place. Will continue to monitor.
--- NOTE | 2021-03-08 12:06 | NUR ---
PHONE MSG FROM INSURANCE STATING IRF CARE DENIED.THERE IS AN APPEAL FORM TO FILL OUT FOR SECONDARY APPEAL CALL [phone]
[2021-03-08 15:16] VITALS: BP 124/57
[2021-03-08 20:17] VITALS: BP 122/61
[2021-03-09 05:58] LABS: ALBUMIN 2.5 g/dL (3.4-5.0); CREATININE 2.1 mg/dL (0.7-1.3); PHOSPHORUS 3.6 mg/dL (2.6-4.7)
--- NOTE | 2021-03-09 07:37 | NUR ---
ASSUMED CARE AT 1900, PT A &OX 4, REMAINS LAYING BED, COMFORATBLE, REPORTS NO PAIN OR DISCOMFORT, COMPLIANT WITH TX, NO ADVERSE REACTION NOTED, SLEPT THROUGH THE NIGHT, USES URINAL FOR ELIMINATION, CALL LIGHT AND PERSONAL BELONGINGS WITHIN REACH WILL CONTINUE TO MONITOR.
[2021-03-09 08:20] VITALS: BP 134/83
--- NOTE | 2021-03-09 15:06 | NUR ---
ASSUMED CARE OF PT AT 0700 THIS MORNING. PT IS A/OX4 AND HAS BEEN GETTING STRONGER DURING STAY. PT IS WAITING FOR PLACEMENT TO REHAB. ASSESSMENTS NOTED IN CHART AND OTHERWISE UNREMARKABLE. NO FALL PRECAUTIONS ARE NEEDED AND PT IS INDEP. CALL LIGHT AND OTHER NEEDS ARE IN REACH. MEDS AND TX GIVEN NEEDED AND SCHEDULED. WILL MONITOR AND NOTE ANY CHANGES.
[2021-03-09 15:11] VITALS: BP 134/83
[2021-03-09 17:08] VITALS: BP 169/46
[2021-03-09 20:40] VITALS: BP 126/57
--- NOTE | 2021-03-10 03:56 | NUR ---
UPON SHIFT REPORT, PT AT BEDSIDE, NO REPORT OF NEEDS OR OBSERVATION OF CONCERN AT THAT TIME. UPON SHIFT ASSESSMENT, PT SLEEP INTERRUPTED, AROUSES EASILY, AOX4. PT DENIES PAIN AND SOB WHILE ON ROOM AIR. INTERMITTENT NONPRODUCTIVE COUGH NOTED. PT TOLERATING PO INTAKE OF FLUIDS AND REGULAR DIET WITHOUT ISSUE. PT WITHOUT NAUSEA OR EMESIS. PT INDEPENDENTLY AMBULATING WITH WALKER TO BEDSIDE COMMODE, INTERMITTENTLY USING STANDBY ASSIST, USING BEDSIDE URINAL OTHERWISE. PT RESTING IN BED THROUGHOUT SHIFT, FREQUENT REPOSITIONING ENCOURAGED. PT NOTED TO SHIFT INDEPENDENTLY. PT REPORTS CHRONIC NUMBNESS TO BOTH FEET. CAPILLARY REFILL LESS THAN 3SEC, PERIPHERAL PULSES PALPABLE IN ALL EXTREMITIES. +4 EDEMA NOTED TO BLE. PT ENCOURAGED TO NOTIFY STAFF FOR ALL NEEDS, CALL LIGHT WITHIN REACH, BED LOCKED IN LOWEST POSITION, FREQUENT MONITORING WILL CONTINUE.
--- NOTE | 2021-03-10 04:05 | NUR ---
UPON SHIFT REPORT, PT WITHOUT REPORT OF NEEDS OR OBSERVATION OF CONCERN AT THAT TIME. UPON SHIFT ASSESSMENT, PT SLEEP INTERRUPTED, AROUSES EASILY, AOX4. PT DENIES PAIN AND SOB WHILE ON ROOM AIR. INTERMITTENT NONPRODUCTIVE COUGH NOTED. PT TOLERATING PO INTAKE OF FLUIDS AND REGULAR DIET WITHOUT ISSUE. PT WITHOUT NAUSEA OR EMESIS. PT INDEPENDENTLY AMBULATING WITH WALKER TO BEDSIDE COMMODE, INTERMITTENTLY USING STANDBY ASSIST, VOIDING PER BEDSIDE URINAL OTHERWISE. PT RESTING IN BED THROUGHOUT SHIFT, FREQUENT REPOSITIONING ENCOURAGED, PT NOTED TO SHIFT INDEPENDENTLY. PT REPORTS CHRONIC NUMBNESS IN BOTH FEET, CAPILLARY REFILL LESS THAN 3SEC, PERIPHERAL PULSES PALPABLE IN ALL EXTREMITIES. +4 EDEMA NOTED TO BLE. PT ENCOURAGED TO NOTIFY STAFF FOR ALL NEEDS, CALL LIGHT WITHIN REACH, BED ALARM ON, BED LOCKED IN LOWEST POSITION, FREQUENT MONITORING WILL CONTINUE.
[2021-03-10 06:19] LABS: ALBUMIN 2.7 g/dL (3.4-5.0); CALCIUM 8.9 mg/dL (8.5-10.1); CREATININE 2.1 mg/dL (0.7-1.3); PHOSPHORUS 3.4 mg/dL (2.6-4.7); POTASSIUM 4.1 mmol/L (3.5-5.1)
[2021-03-10 09:35] VITALS: BP 148/79
--- NOTE | 2021-03-10 09:39 | NUR ---
A/O X 4. ROOM AIR. AD NIKOLAI WITH WALKER. RIGHT AC IV. BILATERAL 2+ EDEMA IN LEGS/FEET-HAS ELEVATED AND REFUSES LANG HOSE. NO PAIN NOTED.
--- NOTE | 2021-03-10 11:33 | NUR ---
Clinical updated faxed to admissions at [place] [facility] and message left for their liason to check on the status of the SNF auth. Pt was denied acute rehab last week. Dc ready for snf today if the auth is in place.
--- NOTE | 2021-03-10 15:48 | NUR ---
gavi notified by benoit with [facility] that skilled referral auth sent to medical staff services manager and offering p2p by calling [phone] option 5, ref # [id number] and attending physician has till 03/11/21 at 11am to call for p2p. Cm passed on information to the attending physician. will cont following as needed for dc needs.
[2021-03-10 20:12] VITALS: BP 130/70
--- NOTE | 2021-03-11 04:46 | NUR ---
PT IS A/O X4 AND IS UP AD NIKOLAI. CALLS OUT APPROPRIATELY FOR ASSISTANCE. DENIES C/O PAIN OR DISCOMFORT. REQUESTING TO SPEAK WITH CM FIRST THING IN THE AM TO DISCUSS CONCERNS AROUND REHAB. WILL ENDORSE THIS TO DAY RN. CALL LIGHT IS WITHIN REACH.
--- NOTE | 2021-03-11 07:48 | NUR ---
Followup: consistently eating >80-100% of meals. No new wt. Awaiting discharge soon but was denied SNF and acute rehab. Remains low nutrition risk
--- NOTE | 2021-03-11 08:11 | NUR ---
cm notified by the attending physician that p2p for skilled rehab was denied, home with today.
--- NOTE | 2021-03-11 08:16 | NUR ---
A/O X 4. ROOM AIR. AD NIKOLAI WITH WALKER. RIGHT AC IV. 2+ BILATERAL LEG EDEMA, REFUSES LANG HOSES, NO PAIN NOTED, WANTS TO TAKE A SHOWER TODAY AND TALK TO CM LATER ABOUT D/C OPTIONS.
[2021-03-11 08:35] VITALS: BP 158/93
[2021-03-11] MEDS ORDERED: FLOMAX0.4 MG PO (13:46)
[2021-03-11 14:09] VITALS: BP 158/93
== END 2021-03-11 15:25 | disposition home health service (06) | DRG 682 ==
LOC: ER 09:11 → EROBS 14:04 → 4S 14:04
PROVIDERS: Hospitalist; Radiology Vascular & Interventional Radiology; Student in an Organized Health Care Education/Training Program; ADMIT Hospitalist; ATTEND Hospitalist
PROC: 0TB13ZX Excision of Left Kidney, Percutaneous Approach, Diagnostic (ICD-10-PCS; principal; 2021-02-28)
DX: N17.9 Acute kidney failure, unspecified (principal); E43 Unspecified severe protein-calorie malnutrition; M62.82 Rhabdomyolysis; D64.9 Anemia, unspecified; E83.39 Other disorders of phosphorus metabolism; R33.9 Retention of urine, unspecified; Z20.822 Contact with and (suspected) exposure to COVID-19; R80.9 Proteinuria, unspecified; I48.0 Paroxysmal atrial fibrillation; I10 Essential (primary) hypertension; E78.00 Pure hypercholesterolemia, unspecified; I25.10 Atherosclerotic heart disease of native coronary artery without angina pectoris; M19.90 Unspecified osteoarthritis, unspecified site; I73.9 Peripheral vascular disease, unspecified; I49.5 Sick sinus syndrome; E78.5 Hyperlipidemia, unspecified; D72.19 Other eosinophilia; K21.9 Gastro-esophageal reflux disease without esophagitis; R53.81 Other malaise; G62.9 Polyneuropathy, unspecified; Z96.652 Presence of left artificial knee joint; Z95.0 Presence of cardiac pacemaker; Z79.82 Long term (current) use of aspirin; Z79.899 Other long term (current) drug therapy; Z82.49 Family history of ischemic heart disease and other diseases of the circulatory system; Z68.37 Body mass index [BMI] 37.0-37.9, adult
CPT/HCPCS: 10102

== ENCOUNTER → 2021-03-17 | Outpatient (CLI) | payer OTHER ==
[~2021-03-17] MED LIST changes: +FLOMAX0.4 MG PO; +IRON325 M1 PO; +KLOR-CON M2020 MEQ PO; +LASIX 20 MG TAB20 MG PO; +PROTONIX40 M2 PO
== END ==
LOC: SJCVC 11:26
PROVIDERS: ATTEND Internal Medicine Cardiovascular Disease
DX: R94.31 Abnormal electrocardiogram [ECG] [EKG] (principal); I11.9 Hypertensive heart disease without heart failure; I48.0 Paroxysmal atrial fibrillation; I49.5 Sick sinus syndrome; M62.82 Rhabdomyolysis; E78.00 Pure hypercholesterolemia, unspecified; R06.00 Dyspnea, unspecified; E78.5 Hyperlipidemia, unspecified; Z95.0 Presence of cardiac pacemaker; Z87.891 Personal history of nicotine dependence; Z79.899 Other long term (current) drug therapy; Z82.49 Family history of ischemic heart disease and other diseases of the circulatory system

== ENCOUNTER 2021-04-10 18:18 | Emergency (ER) | payer OTHER ==
[~2021-04-10] VITALS: Ht 182.9 cm; Wt 120.2 kg
--- NOTE | ~2021-04-10 | EMS ---
[address] [address] EMS Patient Care Report Name: BECK THIBODEAUX Room #: DEP ADRIANO Franco#: [id number] Admission: 04/10/21 Attend Phys: Discharge: 04/10/21 Date of : 47 Report #: [id number] THIS REPORT FOR: //name// Report Transmitted: 04/14/2021 14:25 EMS Care Summary [place], [place]/[facility] Incident [id number] @ 04/10/2021 17:31 Incident Location [address] [place] [address] Patient BECK THIBODEAUX Male, 75 Years 1945 Patient Address [address] [id number] Patient History Hypertension (HTN),Pacemaker/AICD,Atrial Fibrillation,Skin Cancer, Patient Allergies No known allergies, Patient Medications Aleve, Metoprolol, Lovastatin, Chief Complaint cardiac arrest Disposition Transported [place] Dispatch Reason Cardiac Arrest/ Transported To [facility] Narrative Initially dispatched with [employer] [address] and [address] for a cardiac arrest. Upon EMS arrival patient was found laying supine in the hallway of the apartment building, pale, cyanotic, pulseless, apneic, unresponsive. Bystander reported that they found him this way. CPR was initiated. Initial cardiac rhythm was [address] [address] EMS Patient Care Report Name: BECK THIBODEAUX Room #: DEP ER Joan#: [id number] Admission: 04/10/21 Attend Phys: Discharge: 04/10/21 Date of : 47 Report #: [id number] found to be Ventricular Tachycardia. Rhythm was defibrillated. CPR continued. Subsequent rhythm checks found Ventricular Fibrillation and then Asystole. Patient was transported to [facility] where resuscitation efforts were terminated by ED physician. Full report was given to RN and MD prior to signing this document. Initial Vitals @18:00R: 13,EtCO2: 15, @17:44P: 145,EtCO2: 0, @18:04P: 169,R: 15,EtCO2: 23, @18:04P: 142,R: 11,EtCO2: 24, @17:17PcFQ1: 0, @17:59P: 80,R: 11,EtCO2: 8, @17:56P: 57,R: 11,EtCO2: 14, @17:50P: 91,EtCO2: 0, @18:07P: 100,R: 21,EtCO2: 23, @17:40P: 174, @17:48P: 118, @17:42P: 189, @18:11P: 41,R: 11,EtCO2: 29, @17:54R: 16,EtCO2: 11, @18:00R: 14,EtCO2: 14, @17:52P: 94,R: 19,EtCO2: 17, @18:17KcQY3: 12, @18:03P: 26,R: 13,EtCO2: 17, @17:55P: 67,R: 13,EtCO2: 12, @17:43P: 121, @17:52P: 106,R: 21,EtCO2: 20, @18:12P: 80,R: 10,EtCO2: 23, @18:05P: 152,R: 17,EtCO2: 23, @18:13P: 80,R: 13,EtCO2: 23, @17:48P: 135,EtCO2: 0, @17:40P: 138,GCS: 3,TX Suspected: false @17:37P: 125,Pain: 0/10,GCS: 3,Glucose: 215,TX Suspected: false @17:53P: 56,R: 12,GCS: 3,EtCO2: 10, @18:14P: 160,R: 12,GCS: 3,EtCO2: 24, @17:45P: 134,GCS: 15,EtCO2: 0, Assessments @17:36MENTAL:Unresponsive,SKIN:Cyanotic,Pale,HEENT:Head/Face: No Abnormalities,Eyes: No Abnormalities,Neck/Airway: No Abnormalities,LUNG SOUNDS:General: No Abnormalities,Left Upper: No Abnormalities,Right Upper: No Abnormalities,Left Lower: No Abnormalities,Right Lower: No Abnormalities,ABDOMEN:General: No Abnormalities,Left Upper: No Abnormalities,Right Upper: No Abnormalities,Left Lower: No Abnormalities,Right Lower: No Abnormalities,PELVIS//GI:No Abnormalities,EXTREMITIES:Left Arm: No [facility] [address] [place] [address] EMS Patient Care Report Name: BECK THIBODEAUX Room #: DEP ADRIANO Franco#: [id number] Admission: 04/10/21 Attend Phys: Discharge: 04/10/21 Date of : 47 Report #: [id number] Abnormalities,Right Arm: No Abnormalities,Left Leg: No Abnormalities,Right Leg: No Abnormalities,PULSE:NEURO:@18:15MENTAL:Unresponsive,SKIN:HEENT:LUNG SOUNDS:Left Lower: Distension,Left Upper: Distension,Right Lower: Distension,Right Upper: Distension,ABDOMEN:Left Lower: Distension,Left Upper: Distension,Right Lower: Distension,Right Upper: Distension,PELVIS//GI:EXTREMITIES:PULSE:NEURO: Impression Cardiac arrest Procedures @17:36 ALS Assessment Response: UnchangedSucceeded @17:54 Epinephrine 1:10 - 1 Milligrams (mg) - Intraosseous (IO) Response: Unchanged @17:36 Response: UnchangedSucceeded @17:53 Response: WorseSucceeded @17:40 Epinephrine 1:10 - 1 Milligrams (mg) - Intraosseous (IO) Response: Unchanged @17:45 Response: UnchangedSucceeded @17:52 Orotracheal Intubation Response: UnchangedSucceeded @18:04 Epinephrine 1:10 - 1 Milligrams (mg) - Intraosseous (IO) Response: Unchanged @17:40 Response: UnchangedSucceeded @17:37 Response: WorseSucceeded @17:50 Epinephrine 1:10 - 1 Milligrams (mg) - Intraosseous (IO) Response: Unchanged @18:00 Epinephrine 1:10 - 1 Milligrams (mg) - Intraosseous (IO) Response: Unchanged @17:39 Intraosseous - Normal Saline (.9% NaCl) 500cc (EZ-IO (Blue 25mm)) Site: CQ-Lbbei-Dgie Proximal Response: UnchangedSucceeded @17:43 Amiodarone - 300 Milligrams (mg) - Intraosseous (IO) Response: Unchanged @17:48 Amiodarone - 150 Milligrams (mg) - Intraosseous (IO) Response: Unchanged Timeline 17:29,Call Received 17:29,Dispatch Notified 17:31,Dispatched 17:31,En Route 17:35,On Scene 17:36,At Patient 17:36,ALS Assessment,Response: UnchangedSucceeded, 17:36,Response: UnchangedSucceeded, 17:37,Response: WorseSucceeded, 17:37,BP: / M,PULSE: 125,RR: R,SPO2: Ox,ETCO2: ,B,PAIN: 0,GCS: 3, 17:39,Intraosseous - Normal Saline (.9% NaCl) 500cc EZ-IO (Blue 25mm) Site: [address] [address] EMS Patient Care Report Name: BECK THIBODEAUX [facility] [id number] Admission: 04/10/21 Attend Phys: Discharge: 04/10/21 Date of : 47 Report #: [id number] [id number] Proximal,Response: UnchangedSucceeded, 17:40,Epinephrine 1:10 - 1 Milligrams (mg) - Intraosseous (IO),Response: Unchanged 17:40,BP: / M,PULSE: 138,RR: R,SPO2: Ox,ETCO2: ,BG: ,PAIN: ,GCS: 3, 17:40,Response: UnchangedSucceeded, 17:40,BP: / M,PULSE: 174,RR: R,SPO2: Ox,ETCO2: ,BG: ,PAIN: ,GCS: , 17:42,BP: / M,PULSE: 189,RR: R,SPO2: Ox,ETCO2: ,BG: ,PAIN: ,GCS: , 17:43,Amiodarone - 300 Milligrams (mg) - Intraosseous (IO),Response: Unchanged 17:43,BP: / M,PULSE: 121,RR: R,SPO2: Ox,ETCO2: ,BG: ,PAIN: ,GCS: , 17:44,BP: / M,PULSE: 145,RR: R,SPO2: Ox,ETCO2: 0 ,BG: ,PAIN: ,GCS: , 17:45,Response: UnchangedSucceeded, 17:45,BP: / M,PULSE: 134,RR: R,SPO2: Ox,ETCO2: 0 ,BG: ,PAIN: ,GCS: 15, 17:47,BP: / M,PULSE: ,RR: R,SPO2: Ox,ETCO2: 0 ,BG: ,PAIN: ,GCS: , 17:48,Amiodarone - 150 Milligrams (mg) - Intraosseous (IO),Response: Unchanged 17:48,BP: / M,PULSE: 135,RR: R,SPO2: Ox,ETCO2: 0 ,BG: ,PAIN: ,GCS: , 17:48,BP: / M,PULSE: 118,RR: R,SPO2: Ox,ETCO2: ,BG: ,PAIN: ,GCS: , 17:50,Epinephrine 1:10 - 1 Milligrams (mg) - Intraosseous (IO),Response: Unchanged 17:50,BP: / M,PULSE: 91,RR: R,SPO2: Ox,ETCO2: 0 ,BG: ,PAIN: ,GCS: , 17:52,BP: / M,PULSE: 106,RR: 21 R,SPO2: Ox,ETCO2: 20 ,BG: ,PAIN: ,GCS: , 17:52,Orotracheal Intubation Response: UnchangedSucceeded, 17:52,BP: / M,PULSE: 94,RR: 19 R,SPO2: Ox,ETCO2: 17 ,BG: ,PAIN: ,GCS: , 17:53,Response: WorseSucceeded, 17:53,BP: / M,PULSE: 56,RR: 12 R,SPO2: Ox,ETCO2: 10 ,BG: ,PAIN: ,GCS: 3, 17:54,Epinephrine 1:10 - 1 Milligrams (mg) - Intraosseous (IO),Response: Unchanged 17:54,BP: / M,PULSE: ,RR: 16 R,SPO2: Ox,ETCO2: 11 ,BG: ,PAIN: ,GCS: , 17:55,BP: / M,PULSE: 67,RR: 13 R,SPO2: Ox,ETCO2: 12 ,BG: ,PAIN: ,GCS: , 17:56,BP: / M,PULSE: 57,RR: 11 R,SPO2: Ox,ETCO2: 14 ,BG: ,PAIN: ,GCS: , 17:59,BP: / M,PULSE: 80,RR: 11 R,SPO2: Ox,ETCO2: 8 ,BG: ,PAIN: ,GCS: , 18:00,Epinephrine 1:10 - 1 Milligrams (mg) - Intraosseous (IO),Response: Unchanged 18:00,BP: / M,PULSE: ,RR: 14 R,SPO2: Ox,ETCO2: 14 ,BG: ,PAIN: ,GCS: , 18:00,BP: / M,PULSE: ,RR: 13 R,SPO2: Ox,ETCO2: 15 ,BG: ,PAIN: ,GCS: , 18:01,BP: / M,PULSE: ,RR: R,SPO2: Ox,ETCO2: 12 ,BG: ,PAIN: ,GCS: , 18:03,BP: / M,PULSE: 26,RR: 13 R,SPO2: Ox,ETCO2: 17 ,BG: ,PAIN: ,GCS: , 18:04,BP: / M,PULSE: 142,RR: 11 R,SPO2: Ox,ETCO2: 24 ,BG: ,PAIN: ,GCS: , 18:04,Epinephrine 1:10 - 1 Milligrams (mg) - Intraosseous (IO),Response: Unchanged 18:04,BP: / M,PULSE: 169,RR: 15 R,SPO2: Ox,ETCO2: 23 ,BG: ,PAIN: ,GCS: , 18:05,BP: / M,PULSE: 152,RR: 17 R,SPO2: Ox,ETCO2: 23 ,BG: ,PAIN: ,GCS: , 18:07,BP: / M,PULSE: 100,RR: 21 R,SPO2: Ox,ETCO2: 23 ,BG: ,PAIN: ,GCS: , 18:10,Depart Scene 18:11,BP: / M,PULSE: 41,RR: 11 R,SPO2: Ox,ETCO2: 29 ,BG: ,PAIN: ,GCS: , 18:12,BP: / M,PULSE: 80,RR: 10 R,SPO2: Ox,ETCO2: 23 ,BG: ,PAIN: ,GCS: , 18:13,BP: / M,PULSE: 80,RR: 13 R,SPO2: Ox,ETCO2: 23 ,BG: ,PAIN: ,GCS: , [facility] [address] [place] [address] EMS Patient Care Report Name: BECK THIBODEAUX Room #: DEP [facility].#: [id number] Admission: 04/10/21 Attend Phys: Discharge: 04/10/21 Date of : 47 Report #: [id number] 18:14,At Destination 18:14,BP: / M,PULSE: 160,RR: 12 R,SPO2: Ox,ETCO2: 24 ,BG: ,PAIN: ,GCS: 3, 18:35,Call Closed Disclaimer v1.1 Copyright 2021 [employer] This EMS Care Summary contains data elements from the applicable legal record (which may be displayed differently). It is designed to provide pertinent information for the following purposes: continuity of care, clinical quality, and state data reporting. The complete legal record is available to ED staff and administrators of the receiving hospital in [facility]'s Patient Tracker. All data is provided "as is."
== END 2021-04-10 18:29 ==
LOC: ER 18:18
DX: I46.9 Cardiac arrest, cause unspecified (principal); I10 Essential (primary) hypertension; E78.00 Pure hypercholesterolemia, unspecified; I25.10 Atherosclerotic heart disease of native coronary artery without angina pectoris; M19.90 Unspecified osteoarthritis, unspecified site; Z79.891 Long term (current) use of opiate analgesic; Z79.899 Other long term (current) drug therapy